=== PATIENT | female | born 1990 | race African-American/Black ===

== ENCOUNTER 2019-07-26 05:09 | Inpatient (IN) ==
[2019-07-26] MEDS ORDERED: BUTORPHANOL 2 MG/ML VIAL IV PRN (05:15)
[2019-07-26] MEDS ORDERED: MEPERIDINE 50 MG/1 ML VIAL IV PRN (05:15)
[2019-07-26] MEDS ORDERED: ONDANSETRON 4 MG/2 ML VIAL IV PRN ×2 (05:15→19:21)
[2019-07-26] MEDS ORDERED: OXYTOCIN/LR 20 UNIT/1,000 ML BAG IV SCH (05:30)
[2019-07-26] MEDS: LACTATED RINGERS 1,000 ML IV SCH ×3 (05:30→11:26)
[2019-07-26 05:47] LABS: Basophils % 0.3 % (0.0-0.8); Eosinophils % 0.3 % (0.00-10.9); Hematocrit 32.4 VOL% (35.7-47.0); Hemoglobin 9.9 GM/DL (12.0-16.0); Immature Granulocytes % 1.6 %; Lymphocytes # 1.5 10*3/uL (1.4-4.0); Lymphocytes % 22.9 % (21.3-54.2); Mean Corpuscular HGB Conc 30.6 GM/DL (32-36); Mean Corpuscular Volume 77.7 FL (87-102); Monocytes % 9.5 % (1.7-12.7); Neutrophils % 65.4 % (38.7-73.9); Platelet Count 308 T/CUMM (130-400); Red Blood Count 4.17 MC/CUMM (3.8-5.5); Red Cell Distribution Width 15.2 % (9.3-17.3); White Blood Count 6.5 T/CUMM (4-12)
[2019-07-26 06:10] LABS: Alanine Aminotransferase 12 U/L (13-56); Albumin 2.5 G/DL (3.4-5.0); Alkaline Phosphatase 253 U/L (45-117); Aspartate Amino Transferase 12 U/L (0-37); Bilirubin,Total < 0.39 MG/DL (0.2-1.0); Blood Urea Nitrogen 9 MG/DL (7-18); Calcium 9.2 MG/DL (8.5-10.1); Estimated Glom Filtration Rate 175 ML/MIN; Glucose 97 MG/DL (74-106); Osmolality,Calculated 268.1 MOS/KG (273-304)
[2019-07-26] MEDS ORDERED: hydrOXYzine HCL 25 MG/1 ML VIAL IM PRN (07:27)
[2019-07-26] MEDS ORDERED: PROMETHAZINE 25 MG/1 ML VIAL IM ONE (07:27)
[2019-07-26] MEDS ORDERED: FAMOTIDINE 20 MG/2 ML VIAL IV ONE (07:27)
[2019-07-26] MEDS ORDERED: diphenhydrAMINE 50 MG/1 ML VIAL IV PRN ×2 (07:27)
[2019-07-26] MEDS ORDERED: ePHEDrine 50 MG/ML AMP IV PRN (07:27)
[2019-07-26] MEDS ORDERED: CITRIC ACID/SODIUM CITRATE 30 ML UDCUP PO ONE (07:27)
[2019-07-26] MEDS ORDERED: NALOXONE 0.4 MG/ML VIAL IV PRN (07:27)
[2019-07-26] MEDS ORDERED: ONDANSETRON 4 MG/2 ML VIAL IV ONE (07:27)
[2019-07-26] MEDS ORDERED: fentaNYL 2 MCG/ROPIV 0.2% EPID 100 ML EPIDURAL SCH (07:30)
[2019-07-26] MEDS ORDERED: LIDOCAINE 1% 50 ML VIAL ONE (09:29)
[2019-07-26 14:08] LABS: Apearance,Urine CLEAR (Clear); Bilirubin,Urine Negative (Negative); Blood, Urine Negative (Negative); Glucose,Urine (UA) Negative (Negative); Ketones,Urine 5 mg/dL (Negative); Mucus,Urine Moderate /LPF (Occasional); Nitrite,Urine Negative (Negative); Protein,Urine Negative; RBC,Urine 2 /HPF (0-4); Squamous Epithelial Cell,Urine Occasional /HPF (0-10); Urine Color Yellow (Yellow); Urine Specific Gravity 1.023 (1.001-1.035); Urine Urobilinogen < 2.0 EU/DL (0.2-1.0); WBC,Urine 1 /HPF (0-6)
[2019-07-26] MEDS ORDERED: OXYTOCIN 10 UNIT/ML VIAL IM ONE (17:18)
[2019-07-26] MEDS ORDERED: OXYTOCIN/LR 30 UNIT/1,000 ML BAG IV ONE (17:18)
[2019-07-26] MEDS ORDERED: TERBUTALINE 1 MG/1 ML VIAL SUBCUT ONE ×2 (17:30→17:36)
[2019-07-26] MEDS ORDERED: ceFAZolin 3,000 MG in SYRINGE 1 EACH IV ONE (17:30)
[2019-07-26 18:27] LABS: Cord Arterial Blood HCO3 22.6 MMOL/L
[2019-07-26 18:30] LABS: Cord Venous Blood HCO3 22.6 MMOL/L; Cord Venous Blood PCO2 34.8 MMHG; Cord Venous Blood PO2 38.2
[2019-07-26] MEDS ORDERED: MORPHINE 10 MG/10 ML VIAL ONE (18:55)
[2019-07-26] MEDS ORDERED: PHENYLEPHRINE 1 MG/10 ML SYRINGE IV ONE (18:56)
[2019-07-26] MEDS ORDERED: fentaNYL 100 MCG/2 ML VIAL ONE (18:56)
[2019-07-26] MEDS ORDERED: LIDOCAINE MPF 2% /EPI 20 ML VIAL ONE (18:57)
[2019-07-26] MEDS ORDERED: ACETAMINOPHEN 325 MG TABLET PO PRN (19:21)
[2019-07-26] MEDS ORDERED: OXYTOCIN/LR 20 UNIT/1,000 ML BAG IV ONE (19:21)
[2019-07-26] MEDS ORDERED: RHO(D) IMMUNE GLOBULIN 300 MCG SYRINGE IM ONE (19:21)
[2019-07-26] MEDS ORDERED: LACTATED RINGERS 1,000 ML IV SCH (19:30)
[2019-07-26 20:43] LABS: Basophils % 0.1 % (0.0-0.8); Hematocrit 27.3 VOL% (35.7-47.0); Hemoglobin 8.4 GM/DL (12.0-16.0); Immature Granulocytes % 0.9 %; Lymphocytes % 9.4 % (21.3-54.2); Mean Corpuscular HGB Conc 30.8 GM/DL (32-36); Mean Corpuscular Volume 79.4 FL (87-102); Mean Platelet Volume 9.7 FL (9.6-12.0); Monocytes % 7.2 % (1.7-12.7); Neutrophils % 82.4 % (38.7-73.9); Platelet Count 261 T/CUMM (130-400); Red Blood Count 3.44 MC/CUMM (3.8-5.5); Red Cell Distribution Width 15.2 % (9.3-17.3); White Blood Count 10.7 T/CUMM (4-12)
[2019-07-26] MEDS: DOCUSATE SODIUM 100 MG CAPSULE PO SCH (20:53)
[2019-07-27] MEDS: ceFAZolin 1,000 MG in SYRINGE 1 EACH IV SCH ×2 (01:42→09:04)
[2019-07-27 05:51] LABS: Basophils % 0.1 % (0.0-0.8); Eosinophils % 0.1 % (0.00-10.9); Hematocrit 26.4 VOL% (35.7-47.0); Immature Granulocytes % 0.7 %; Immature Granulocytes Absolute 0.06 #; Lymphocytes # 1.2 10*3/uL (1.4-4.0); Lymphocytes % 14.4 % (21.3-54.2); Mean Corpuscular HGB Conc 30.3 GM/DL (32-36); Mean Corpuscular Volume 78.8 FL (87-102); Mean Platelet Volume 10.1 FL (9.6-12.0); Monocytes % 8.3 % (1.7-12.7); Neutrophils % 76.4 % (38.7-73.9); Platelet Count 254 T/CUMM (130-400); Red Blood Count 3.35 MC/CUMM (3.8-5.5); Red Cell Distribution Width 15.2 % (9.3-17.3); White Blood Count 8.6 T/CUMM (4-12)
[2019-07-27] MEDS: MULTIVITAMIN (PRENATAL) TABLET PO SCH (09:04)
[2019-07-27] MEDS: DOCUSATE SODIUM 100 MG CAPSULE PO SCH ×2 (09:04→21:41)
[2019-07-27] MEDS: SIMETHICONE CHEW 80 MG TABLET PO PRN (09:04)
[2019-07-27] MEDS: MAGNESIUM HYDROXIDE SUSP 30 ML UDCUP PO PRN ×2 (09:04→21:41)
[2019-07-27] MEDS: IBUPROFEN 800 MG TABLET PO PRN (18:50)
[2019-07-28] MEDS: DOCUSATE SODIUM 100 MG CAPSULE PO SCH ×2 (08:46→20:05)
[2019-07-28] MEDS: MULTIVITAMIN (PRENATAL) TABLET PO SCH (08:46)
[2019-07-28] MEDS: IBUPROFEN 800 MG TABLET PO PRN ×2 (09:15→20:05)
[2019-07-28] MEDS: MAGNESIUM HYDROXIDE SUSP 30 ML UDCUP PO PRN (20:05)
[2019-07-29] MEDS: SIMETHICONE CHEW 80 MG TABLET PO PRN (08:32)
[2019-07-29] MEDS: MULTIVITAMIN (PRENATAL) TABLET PO SCH (08:32)
[2019-07-29] MEDS: DOCUSATE SODIUM 100 MG CAPSULE PO SCH (08:32)
[2019-07-29] MEDS: MAGNESIUM HYDROXIDE SUSP 30 ML UDCUP PO PRN (08:32)
[2019-07-29] MEDS: IBUPROFEN 800 MG TABLET PO PRN (09:08)
[2019-07-29 12:50] VITALS: BP 126/72
== END 2019-07-29 18:15 | disposition home or self-care (01) | DRG 540 ==
LOC: N.LDOUT 05:09 → N.LD 05:11 → N.OB 21:45
PROVIDERS: ADMIT Obstetrics & Gynecology; ATTEND Obstetrics & Gynecology
PROC: LDCSECT (ICD-10-PCS; 2019-07-26 17:00)

== ENCOUNTER 2020-06-19 07:01 | Inpatient (IN) ==
[2020-06-19] MEDS ORDERED: CITRIC ACID/SODIUM CITRATE 30 ML UDCUP PO ONE (07:56)
[2020-06-19] MEDS ORDERED: ONDANSETRON 4 MG/2 ML VIAL IV PRN ×2 (07:56→16:33)
[2020-06-19] MEDS ORDERED: FAMOTIDINE 20 MG/2 ML VIAL IV ONE (07:56)
[2020-06-19] MEDS ORDERED: ceFAZolin 3,000 MG in SYRINGE 1 EACH IV ONE ×2 (07:56→08:30)
[2020-06-19] MEDS ORDERED: BUTORPHANOL 2 MG/ML VIAL IV PRN (07:56)
[2020-06-19] MEDS ORDERED: oxyCODONE/ACETAMINOPHEN 5-325 MG TABLET PO PRN (07:56)
[2020-06-19] MEDS ORDERED: BUPIVACAINE 0.25% 50 ML VIAL ONE (08:00)
[2020-06-19] MEDS ORDERED: PHENYLEPHRINE 1 MG/10 ML SYRINGE IV ONE (08:00)
[2020-06-19] MEDS ORDERED: MORPHINE 10 MG/10 ML VIAL ONE (08:02)
[2020-06-19] MEDS ORDERED: fentaNYL 100 MCG/2 ML VIAL ONE (08:02)
[2020-06-19] MEDS ORDERED: ONDANSETRON 4 MG/2 ML VIAL ONE (08:03)
[2020-06-19] MEDS ORDERED: DEXAMETHASONE 4 MG/1 ML VIAL ONE (08:03)
[2020-06-19] MEDS ORDERED: BUPIVACAINE SPINAL 0.75% 2 ML AMP SPINAL ONE (08:03)
[2020-06-19 08:36] LABS: Basophils % 0.1 % (0.0-0.8); Eosinophils % 0.4 % (0.00-10.9); Hematocrit 26.3 VOL% (35.7-47.0); Hemoglobin 7.6 GM/DL (12.0-16.0); Immature Granulocytes % 0.8 %; Immature Granulocytes Absolute 0.06 #; Lymphocytes # 1.7 10*3/uL (1.4-4.0); Lymphocytes % 21.5 % (21.3-54.2); Mean Corpuscular HGB Conc 28.9 GM/DL (32-36); Mean Corpuscular Volume 76.9 FL (87-102); Mean Platelet Volume 9.5 FL (9.6-12.0); Monocytes % 7.2 % (1.7-12.7); Platelet Count 276 T/CUMM (130-400); Red Blood Count 3.42 MC/CUMM (3.8-5.5); Red Cell Distribution Width 16.4 % (9.3-17.3); White Blood Count 7.7 T/CUMM (4-12)
[2020-06-19 08:56] LABS: Hypochromasia 1+; Microcytosis 1+; Ovalocytes Slight; Platelet Estimate Adequate
[2020-06-19] MEDS ORDERED: SODIUM CHLORIDE 0.9% 1,000 ML IV PRN (11:16)
[2020-06-19] MEDS ORDERED: OXYTOCIN/LR 30 UNIT/1,000 ML BAG IV ONE (11:23)
[2020-06-19] MEDS ORDERED: OXYTOCIN 10 UNIT/ML VIAL IM ONE (11:23)
[2020-06-19] MEDS ORDERED: miSOPROStoL 200 MCG TABLET ONE (11:29)
[2020-06-19] MEDS ORDERED: TRANEXAMIC ACID 1,000 MG/10 ML VIAL ONE (11:30)
[2020-06-19] MEDS ORDERED: METHYLERGONOVINE 0.2 MG/1 ML AMP ONE (11:30)
[2020-06-19] MEDS ORDERED: CARBOPROST TROMETHAMINE 250 MCG/ML AMP IM ONE (11:30)
[2020-06-19] MEDS ORDERED: OXYTOCIN/LR 20 UNIT/1,000 ML BAG IV ONE ×2 (11:30→16:33)
[2020-06-19] MEDS: LACTATED RINGERS 1,000 ML IV SCH ×2 (12:30→12:31)
[2020-06-19 16:00] LABS: Bilirubin,Urine Negative (Negative); Blood, Urine Negative (Negative); Glucose,Urine (UA) Negative (Negative); Ketones,Urine 20 mg/dL (Negative); Mucus,Urine Occasional /LPF (Occasional); Nitrite,Urine Negative (Negative); Protein,Urine Negative; RBC,Urine <1 /HPF (0-4); Squamous Epithelial Cell,Urine Occasional /HPF (0-10); Urine Appearance CLEAR (Clear); Urine Color Yellow (Yellow); Urine Specific Gravity 1.027 (1.001-1.035); Urine Urobilinogen < 2.0 EU/DL (0.2-1.0); WBC,Urine <1 /HPF (0-6)
[2020-06-19] MEDS ORDERED: MAGNESIUM HYDROXIDE SUSP 30 ML UDCUP PO PRN (16:33)
[2020-06-19] MEDS ORDERED: SIMETHICONE CHEW 80 MG TABLET PO PRN (16:33)
[2020-06-19] MEDS ORDERED: RHO(D) IMMUNE GLOBULIN 300 MCG SYRINGE IM ONE (16:33)
[2020-06-19] MEDS ORDERED: IBUPROFEN 800 MG TABLET PO PRN (16:33)
[2020-06-19] MEDS ORDERED: ACETAMINOPHEN 325 MG TABLET PO PRN (16:33)
[2020-06-19] MEDS ORDERED: HYDROmorphone 2 MG/1 ML VIAL IV PRN (16:35)
[2020-06-19] MEDS ORDERED: diphenhydrAMINE 50 MG/1 ML VIAL IV PRN (16:35)
[2020-06-19] MEDS ORDERED: hydrOXYzine HCL 25 MG/1 ML VIAL IM PRN (16:35)
[2020-06-19] MEDS ORDERED: ceFAZolin 1,000 MG in SYRINGE 1 EACH IV SCH (17:00)
[2020-06-19] MEDS ORDERED: LACTATED RINGERS 1,000 ML IV SCH (17:00)
[2020-06-19] MEDS: DOCUSATE SODIUM 100 MG CAPSULE PO SCH (21:21)
[2020-06-19 22:41] LABS: Basophils % 0.1 % (0.0-0.8); Hematocrit 29.5 VOL% (35.7-47.0); Hemoglobin 8.9 GM/DL (12.0-16.0); Immature Granulocytes % 0.6 %; Immature Granulocytes Absolute 0.08 #; Lymphocytes % 8.4 % (21.3-54.2); Mean Corpuscular HGB Conc 30.2 GM/DL (32-36); Mean Corpuscular Volume 76.6 FL (87-102); Mean Platelet Volume 9.7 FL (9.6-12.0); Monocytes % 3.2 % (1.7-12.7); Neutrophils % 87.7 % (38.7-73.9); Platelet Count 263 T/CUMM (130-400); Red Blood Count 3.85 MC/CUMM (3.8-5.5); White Blood Count 12.4 T/CUMM (4-12)
[2020-06-20] MEDS ORDERED: ceFAZolin 1,000 MG in SYRINGE 1 EACH IV SCH (06:30)
[2020-06-20 07:51] LABS: Basophils % 0.1 % (0.0-0.8); Eosinophils % 0.1 % (0.00-10.9); Hematocrit 27.6 VOL% (35.7-47.0); Hemoglobin 8.2 GM/DL (12.0-16.0); Immature Granulocytes % 0.7 %; Immature Granulocytes Absolute 0.08 #; Lymphocytes # 1.9 10*3/uL (1.4-4.0); Lymphocytes % 15.9 % (21.3-54.2); Mean Corpuscular HGB Conc 29.7 GM/DL (32-36); Mean Corpuscular Volume 76.5 FL (87-102); Mean Platelet Volume 9.6 FL (9.6-12.0); Monocytes % 6.4 % (1.7-12.7); Neutrophils % 76.8 % (38.7-73.9); Platelet Count 240 T/CUMM (130-400); Red Blood Count 3.61 MC/CUMM (3.8-5.5); Red Cell Distribution Width 16.8 % (9.3-17.3); White Blood Count 11.6 T/CUMM (4-12)
[2020-06-20] MEDS: DOCUSATE SODIUM 100 MG CAPSULE PO SCH ×2 (08:32→21:06)
[2020-06-20] MEDS: MAGNESIUM HYDROXIDE SUSP 30 ML UDCUP PO SCH ×2 (08:32→21:06)
[2020-06-20] MEDS: MULTIVITAMIN (PRENATAL) TABLET PO SCH (08:32)
[2020-06-20] MEDS: FERROUS SULFATE 325 MG TABLET PO SCH ×3 (08:32→21:06)
[2020-06-20] MEDS: METOCLOPRAMIDE 10 MG TABLET PO SCH ×3 (08:32→23:11)
[2020-06-21 07:36] VITALS: BP 123/75
[2020-06-21] MEDS: FERROUS SULFATE 325 MG TABLET PO SCH (08:23)
[2020-06-21] MEDS: DOCUSATE SODIUM 100 MG CAPSULE PO SCH (08:30)
[2020-06-21] MEDS: MAGNESIUM HYDROXIDE SUSP 30 ML UDCUP PO SCH (08:30)
[2020-06-21] MEDS: METOCLOPRAMIDE 10 MG TABLET PO SCH (08:30)
[2020-06-21] MEDS: MULTIVITAMIN (PRENATAL) TABLET PO SCH (08:30)
== END 2020-06-21 11:20 | disposition home or self-care (01) | DRG 540 ==
LOC: N.LD 07:01 → N.OB 20:49
PROVIDERS: ADMIT Obstetrics & Gynecology; ATTEND Obstetrics & Gynecology